=== PATIENT | female | born 2000 | race Caucasian/White ===

== ENCOUNTER 2024-02-01 01:00 | Emergency (ER) | payer OTHER ==
[~2024-02-01] VITALS: Ht 160 cm; Wt 77.1 kg
[2024-02-01] MEDS: IV NS 0.9% 1,000 ML BAG IV ONE ×2 (01:33→02:40)
[2024-02-01 01:49] LABS: BASOPHILS # (AUTO) 0.1 K/uL (0.0-0.2); BASOPHILS % (AUTO) 0.4 % (0.0-2.0); EOSINOPHILS # (AUTO) 0.1 K/uL (0.0-0.7); EOSINOPHILS % (AUTO) 0.4 % (0.0-6.0); HEMATOCRIT 39 % (33-45); HEMOGLOBIN 13.3 g/dL (11.5-14.8); LYMPHOCYTES # (AUTO) 1.6 K/uL (0.8-4.8); LYMPHOCYTES % (AUTO) 8.3 % (20.0-44.0); MEAN CORPUSCULAR HEMOGLOBIN 30 PG (26.0-33.0); MEAN CORPUSCULAR HGB CONC 34 g/dl (31.0-36.0); MEAN CORPUSCULAR VOLUME 87 fL (82-100); MONOCYTES % (AUTO) 5.3 % (2.0-12.0); NEUTROPHILS # (AUTO) 16.2 K/uL (1.8-8.9); NEUTROPHILS % (AUTO) 85.6 % (43.0-81.0); PLATELET COUNT (AUTO) 232 K/uL (150-450); RED CELL DISTRIBUTION WIDTH 13.1 % (11.5-15.0); WHITE BLOOD COUNT (AUTO) 18.9 K/uL (4.3-11.0)
[2024-02-01] MEDS: VANCOMYCIN 1 GM in IV D5W 250 ML IV ONE (02:00)
[2024-02-01 02:15] LABS: ALANINE AMINOTRANSFERASE 13 U/L (12-78); ALBUMIN 4.2 g/dL (3.4-5.0); ALKALINE PHOSPHATASE 59 U/L (46-116); ASPARTATE AMINOTRANSFERASE 13 U/L (15-37); BILIRUBIN,DIRECT 0.1 mg/dL (0.0-0.2); BILIRUBIN,TOTAL 0.6 mg/dL (0.2-1.0); CALCIUM, SERUM 9.3 mg/dL (8.5-10.1); CARBON DIOXIDE 23 mmol/L (21-32); CHLORIDE 103 mmol/L (98-107); CREATININE 0.8 mg/dL (0.6-1.3); GLUCOSE 114 mg/dL (74-106); POTASSIUM 3.4 mmol/L (3.5-5.1); SODIUM SERUM 136 mmol/L (136-145); TOTAL PROTEIN, SERUM 7.8 g/dL (6.4-8.2); UREA NITROGEN, BLOOD 15 mg/dL (7-18)
[2024-02-01 02:25] LABS: INR 1.01 (0.91-1.10); PROTHROMBIN TIME 10.4 SECS (9.2-11.1)
[2024-02-01] MEDS ORDERED: VANCOMYCIN 1 GM /D5W 250 ML PB IV ONE (02:25)
[2024-02-01] MEDS ORDERED: methylPREDNISolone SOD SUCC 40 MG/ML VIAL ONE (02:25)
[2024-02-01] MEDS ORDERED: KETOROLAC TROMETHAMINE 15 MG/ML VIAL ONE (02:25)
[2024-02-01] MEDS ORDERED: CEFEPIME 1 GM VIAL ONE (02:25)
[2024-02-01 02:26] LABS: PREGNANCY TEST URINE QUAL NEGATIVE (NEGATIVE)
[2024-02-01] MEDS ORDERED: CT SWABBABLE VALVE TRANS SET 1 EA INFUS.SET MC ONE (02:30)
[2024-02-01] MEDS ORDERED: IV NS 0.9% 250 ML IV ONE (02:30)
[2024-02-01] MEDS ORDERED: IOHEXOL-300 100 ML VIAL IV ONE (02:30)
[2024-02-01] MEDS: methylPREDNISolone SOD SUCC 40 MG/ML VIAL IV ONE (02:40)
[2024-02-01] MEDS: CEFEPIME 1 GM in IV D5W 50 ML IV ONE (02:40)
[2024-02-01] MEDS: KETOROLAC TROMETHAMINE 15 MG/ML VIAL IV ONE (02:41)
[2024-02-01] MEDS ORDERED: AMOX-430 PO (03:49)
[2024-02-01] MEDS ORDERED: KETO10TA2 PO (03:49)
[2024-02-01 03:58] VITALS: BP 107/58; TEMP 101.8; O2SAT 98
== END 2024-02-01 03:59 | disposition home or self-care (01) ==
LOC: ER 01:02
DX: R55 Syncope and collapse (principal); R50.9 Fever, unspecified; R51.9 Headache, unspecified; J02.9 Acute pharyngitis, unspecified; R13.10 Dysphagia, unspecified
CPT/HCPCS: 99285; 96365; 70491; 96375; 71045; 96366; 87426; 96368; 93005; 87804 ×2; 84145; 85025; 80048; 87040; 83605; 80076; 36415; 84484; 85730; 83880; 84703 ×2; J2919; J3370 ×2; J7060; J7030 ×2; J7050; J0692 ×2; Q9967; J1885